=== PATIENT | female | born 1940 | race Caucasian/White ===

== ENCOUNTER 2019-01-14 04:37 | Emergency (ER) | payer MEDICARE, BC ==
[2019-01-14] MEDS ORDERED: Dexamethasone 4 MG TAB ONE (05:21)
[2019-01-14] MEDS ORDERED: Ondansetron ODT 4 MG TAB ONE (06:01)
--- NOTE | 2019-01-14 07:34 | RAD ---
EXAM: Chest 2 views: HISTORY: Shortness of breath COMPARISON: 05/31/2017 FINDINGS: There is a normal-sized cardiomediastinal silhouette. There is no evidence of consolidation, mass, or pleural effusion. A small hiatal hernia is present. The bones are unremarkable. IMPRESSION: No evidence of acute cardiopulmonary disease
== END 2019-01-14 06:04 | disposition home or self-care (01) ==
LOC: ERS 04:37
DX: J44.1 Chronic obstructive pulmonary disease with (acute) exacerbation (principal); D50.9 Iron deficiency anemia, unspecified; I10 Essential (primary) hypertension; Z87.891 Personal history of nicotine dependence; Z79.51 Long term (current) use of inhaled steroids
CPT/HCPCS: 71046; 94640; J7620; J8540; Q0162

== ENCOUNTER 2019-02-11 12:32 | Inpatient (IN) | payer MEDICARE, BC ==
[2019-02-11] MEDS ORDERED: Acetaminophen 325 MG TAB PO PRN (15:45)
[2019-02-11] MEDS ORDERED: Ondansetron PF 4 MG/2 ML Vial IVP PRN (15:45)
[2019-02-11] MEDS ORDERED: Guaifenesin DM 100-10/5 ML UDCUP PO PRN (15:45)
--- NOTE | 2019-02-11 16:17 | HP ---
REASON FOR ADMISSION: Severe anemia, likely acute blood loss anemia, COPD exacerbation. HISTORY OF PRESENTING ILLNESS: The patient gives history of developing shortness of breath early this morning. She went to [place] [facility] for the same. On initial workup, she was found to have had hemoglobin of 6 g. She does not complain of any chest pain, palpitation, fever. She has cough with usual expectoration of clear sputum. She has known history of COPD and is on home oxygen at bedtime along with nebulizers and Advair inhaler. No complaints of black stools. No abdominal pain, nausea, or vomiting. She states she takes at least 2 to 3 Tylenol and one tablet of Mobic for chronic arthritis pain. No ignacia bleeding per rectum or hemoptysis. No complaints of chest pain or palpitations. No fever. PAST MEDICAL AND SURGICAL HISTORY: History of hypertension, dyslipidemia, hypothyroidism, COPD, osteoarthritis. No prior surgical history. Has had prior EGD and colonoscopy. CURRENT MEDICATIONS: Takes; 1. Albuterol inhaler q.4 hours p.r.n. 2. Advair Diskus inhaler 250/50 mcg two puffs daily. 3. Mobic 7.5 mg daily. 4. Tylenol p.r.n. 5. Synthroid 75 mcg p.o. daily. 6. Cozaar 50 mg p.o. daily. 7. Norvasc 5 mg p.o. daily. ALLERGIES: TO LIPITOR. PERSONAL HISTORY: Quit smoking 30 years ago, prior to which I smoked 1 pack a day for nearly 30 years. Does not abuse alcohol or drugs. Lives with her of 64 years. FAMILY HISTORY: Mother in her 80s from natural causes. Father of natural causes as well at the age of 75. CODE STATUS: Full. Power of trust and estates attorney is her , Mr. Cristobal Smith. She ambulates per herself. REVIEW OF SYSTEMS: CONSTITUTIONAL: Negative for weight loss or gain, ability to conduct usual activities. SKIN: Negative for rash, itching. EYES: Negative for double vision, pain. ENT/MOUTH: Negative for nose bleeding, neck stiffness, pain, tenderness. CARDIOVASCULAR: Negative for palpitations, dyspnea on exertion, orthopnea. RESPIRATORY: Negative for shortness of breath, wheezing, cough, hemoptysis, fever or night sweats. GASTROINTESTINAL: Negative for poor appetite, abdominal pain, heartburn, nausea , vomiting, constipation, or diarrhea. GENITOURINARY: Negative for urgency, frequency, dysuria, nocturia. MUSCULOSKELETAL: Negative for pain, swelling. NEUROLOGIC/PSYCHIATRIC: Negative for anxiety, depression. ALLERGY/IMMUNOLOGIC: Negative for skin rash, bleeding tendency. PHYSICAL EXAMINATION: GENERAL: The patient is an 78-year-old female, who is currently not in any acute distress. VITAL SIGNS: Blood pressure 154/80, pulse 90 per minute, respiratory rate 18 per minute, temperature 98.1 degrees Fahrenheit, saturating 98% on room air. NECK: Supple. No elevated JVD. HEENT: Eyes; extraocular muscles intact. Pupils reacting to light. Oral cavity, mucous membranes are dry. No exudates or congestion. CARDIOVASCULAR: S1 and S2 heard. Regular rhythm. RESPIRATORY: Air entry 1+ bilateral. Scattered wheezes plus bilateral. ABDOMEN: Soft. Bowel sounds heard. No tenderness, rigidity, or guarding. EXTREMITIES: No peripheral edema or calf tenderness. Peripheral pulses are 1+ bilateral. No ischemic ulcerations or gangrene. CENTRAL NERVOUS SYSTEM: No gross focal deficits noted. The patient is alert, awake, oriented well. PSYCHIATRIC: The patient's mood is euthymic. No hallucinations or delusions. LABORATORY DATA: H and H is 6 and 20, platelet count is 442, MCV 67, white count of 11. Sodium 143, serum bicarb 26, BUN 11, creatinine 0.7, serum glucose 108. BNP is 144. Liver enzymes are within normal limits. Alkaline phosphatase is 81. Troponin I 0.01. Chest x-ray done shows mild cardiomegaly, otherwise no acute infiltrate. CLINICAL IMPRESSION AND PLAN: The patient will be admitted to medical floor for severe anemia with hemoglobin of 6 g. Normal BUN, still likely acute GI bleed. She will be on Protonix 40 mg IV q.12 hourly. We will obtain stool guaiac test. She also has acute on chronic obstructive pulmonary disease exacerbation. We will hold off on steroids and we will place her on empiric Levaquin, DuoNeb for now. She has received 1 unit of packed cell in [facility] and we will hold off on further transfusion with serial H and H checks every 6 hours. If her hemoglobin is less than 7 g, she will be transfused. I have spoken to Dr. Grant, her gastroenterologists will be evaluating her this evening. We will keep her on clear liquid diet for now. Mrs. Smith will continue her home dose of levothyroxine and Norvasc as before. We will obtain echo with 2D Doppler and LDH levels. Job ID: [id number] MTDD
[2019-02-11 16:27] LABS: Hemoglobin 8.1 g/dL (12.0-16.0)
[2019-02-11 17:24] VITALS: BMI 28.0
[2019-02-11] MEDS: Pantoprazole 40 MG VIAL IVP SCH (20:21)
[2019-02-11] MEDS ORDERED: GoLYTELY 4,000 ml Bottle PO SCH (22:00)
[2019-02-11 22:29] LABS: Hemoglobin 8.7 g/dL (12.0-16.0)
[2019-02-12] MEDS: Levothyroxine Sodium 75 MCG TAB PO SCH (02:57)
--- NOTE | 2019-02-12 05:30 | CON ---
DATE OF CONSULTATION: 02/11/2019 REASON FOR CONSULTATION: Anemia. HISTORY OF PRESENT ILLNESS: Charlee Smith is a very pleasant 78-year-old female went to the emergency rehab because of dyspnea. The patient will feel dyspneic off and on. There is no chest pain. No palpitation. She is known to have COPD, and she is on bronchodilators. The patient was seen in the [place] ER and was found to have anemia. The CBC showed hemoglobin of 6.4. The MCV is low at 6 to 7. Although, she has anemia, she has no history of chronic anemia. She denies any extreme fatigue, tiredness, or lack of energy. The patient has no history of GI bleeding. Her bowel movements are regular. No hematochezia or any melena. Denies history of any bleeding from the gums, nose bleed, or hematuria. The patient has no prior history of anemia. She came to the ER in 10/2018, sounds like head pain. At that time, she has normal CBC. She has a BM once a day. She had not seen any dark stool or any blood in the stool. The patient has no relevant history. The patient had seen me I believe in 2012 for which she came for a foreign body impaction. At that time, she had an EGD and has no pathology until then. In 09/2013, she had an EGD which revealed distal esophageal rings, non-obstructing, and esophagitis. The colonoscopy at that time showed scattered diverticular disease. No relevant history. ALLERGIES: NONE. SOCIAL HISTORY: The patient is . She quit smoking more than 40 years ago. Does not drink any alcohol. MEDICAL ILLNESSES: 1. Hypertension. 2. Hypothyroidism. 3. COPD. 4. Diverticular disease from previous colonoscopy in 2013. FAMILY HISTORY: Mother did have some cancer, place is unknown. No relevant family history. MEDICATION LIST: Reviewed. She is on amlodipine, albuterol, levofloxacin, levothyroxine, and also pantoprazole. PAST SURGICAL HISTORY: None. 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 No fevers. No night sweats. Exercise tolerance is very good. HEENT: No chronic headache. No syncope. No dizziness. ENT: Ears, no ear pain. No discharge. Eyes, no diplopia, no impaired vision. Throat, no sore throat. No dysphagia. NECK: No stiffness or pain. CARDIOVASCULAR: No chest pain. No palpitation. No dyspnea, orthopnea, or PND. RESPIRATORY: She has dyspnea off and on and coughing. She has noted COPD. GI: No abdominal pain. No nausea or vomiting. She gets dysphagia off and on for solid foods. : No hematuria or dysuria. MUSCULOSKELETAL: Not known. ENDOCRINE: Not known. NEUROLOGICAL: Not known. PHYSICAL EXAMINATION: GENERAL: She is a very pleasant female, appears comfortable. VITAL SIGNS: Stable. Afebrile. Pulse 96, blood pressure is 151/53. HEENT: Conjunctivae clear. NECK: Supple. No adenitis or thyromegaly noted. CARDIOVASCULAR SYSTEM: First and second heart sounds. LUNGS: Clear to auscultation. ABDOMEN: Soft. Abdomen is nondistended. Abdomen is nontender. No organomegaly or masses. Bowel sounds normal. EXTREMITIES: Reveal no edema. LABORATORY DATA: From this morning, WBC 11,500, hemoglobin 6.2, hematocrit 29.4, MCV 67.1, platelet count is 442,000, polymorphs 66, lymphocytes 18, monocytes 4, and retic count 1.9. Chemistry: Glucose 108, BUN is 11. LFTs normal. LDH is normal at 198. BNP 144.6. CLINICAL IMPRESSION: 1. An 78-year-old female with anemia which is microcytic. The patient has no history of gastrointestinal bleeding. No history of hematochezia or any melena. No history of any nose bleeding. 2. Dysphagia, intermittent. 3. Hypertension. 4. Hypothyroidism. 5. Chronic obstructive pulmonary disease. RECOMMENDATIONS: 1. Transfuse. 2. Follow up H and H. 3. EGD and colonoscopy tomorrow. Job ID: [id number]
[2019-02-12] MEDS ORDERED: GoLYTELY 4,000 ml Bottle PO SCH (06:00)
[2019-02-12 07:02] LABS: Hemoglobin 9.9 g/dL (12.0-16.0)
[2019-02-12 07:16] LABS: ALT (SGPT) 8 U/L (8-55); AST (SGOT) 11 U/L (5-34); Albumin 4.2 g/dL (3.4-4.8); Alkaline Phosphatase 93 U/L (40-150); Anion Gap 12 mmol/L (10-20); BUN (Urea Nitrogen) 7 mg/dL (9.8-20.1); Bilirubin, Total 0.7 mg/dL (0.2-1.2); Calc. Creatinine Clearance 57 mL/min (70-130); Calcium 9.9 mg/dL (7.8-10.44); Carbon Dioxide 27 mmol/L (23-31); Chloride 104 mmol/L (98-107); Estimated GFR-MDRD 68; Globulin 2.9 g/dL (2.4-3.5); Glucose 139 mg/dL (83-110); Potassium 3.6 mmol/L (3.5-5.1); Protein, Total 7.1 g/dL (6.0-8.3); Sodium 139 mmol/L (136-145)
[2019-02-12] MEDS: Amlodipine 5 MG TAB PO SCH (08:28)
[2019-02-12] MEDS: Pantoprazole 40 MG VIAL IVP SCH ×2 (08:34→21:18)
--- NOTE | 2019-02-12 13:14 | PDOC.PN ---
- Subjective Encounter Start Date: 02/12/19 Encounter Start Time: 10:40 Subjective: no abd pain or bleed -: she finished bowel prep for colonoscopy -: sob is better - Objective Resuscitation Status - Order Detail: 02/11/19 15:40 Resuscitation Status Routine Resuscitation Status: FULL: Full Resuscitation Discussed with: POA: Mr.Jack Smith MAR Reviewed: Yes Vital Signs & Weight: Vital Signs (12 hours) Temp Pulse Resp BP Pulse Ox 02/12/19 11:14 97.7 F 99 18 164/84 H 92 L 02/12/19 07:22 97.5 F L 97 22 H 127/63 97 02/12/19 07:04 88 16 98 02/12/19 05:44 98.4 F 91 18 147/68 H 94 L Weight Weight 143 lb 4.8 oz I&O: 02/11/19 02/12/19 02/13/19 06:59 06:59 06:59 Intake Total 110 Balance 110 Result Diagrams: 02/12/19 06:28 02/12/19 06:28 Phys Exam - Physical Examination HEENT: PERRLA, moist MMs Neck: no JVD, supple Respiratory: no wheezing, no rales rhonchi+ Cardiovascular: RRR, no significant murmur Gastrointestinal: soft, non-tender, positive bowel sounds Musculoskeletal: no edema, pulses present Neurological: non-focal, moves all 4 limbs Psychiatric: normal affect, A&O x 3 Dx/Plan (1) GI bleed Code(s): K92.2 - GASTROINTESTINAL HEMORRHAGE, UNSPECIFIED Status: Suspected Qualifiers: GI bleed type/associated pathology: unspecified gastrointestinal hemorrhage type Qualified Code(s): K92.2 - Gastrointestinal hemorrhage, unspecified (2) Severe anemia Code(s): D64.9 - ANEMIA, UNSPECIFIED Status: Acute (3) COPD exacerbation Code(s): J44.1 - CHRONIC OBSTRUCTIVE PULMONARY DISEASE W (ACUTE) EXACERBATION Status: Acute (4) HTN (hypertension) Code(s): I10 - ESSENTIAL (PRIMARY) HYPERTENSION Status: Chronic Qualifiers: Hypertension type: essential hypertension Qualified Code(s): I10 - Essential (primary) hypertension (5) Hypothyroidism Code(s): E03.9 - HYPOTHYROIDISM, UNSPECIFIED Status: Chronic Qualifiers: Hypothyroidism type: acquired Qualified Code(s): E03.9 - Hypothyroidism, unspecified - Plan is on protonix q12h -: h/h stable around 07/29, recieved 2 u prbc -: for egd/colonoscopy today -: continue nebs, levaquin, norvasc and synthroid -: to mobilize as tolerated, dc plan in am if stable * . Review of Systems - Medications/Allergies Allergies/Adverse Reactions: Allergies Allergy/AdvReac Type Severity Reaction Status Date / Time No Known Allergies Allergy Verified 02/11/19 17:31 Medications: Current Medications Acetaminophen (Tylenol) 650 mg PO Q4H PRN PRN Reason: Headache/Fever/Mild Pain (1-3) Albuterol/Ipratropium (Duoneb) 3 ml NEB Q6HK-LT [facility] Last Admin: 02/12/19 07:04 Dose: 3 ml Amlodipine Besylate (Norvasc) 5 mg PO DAILY [facility] Last Admin: 02/12/19 08:28 Dose: 5 mg Guaifenesin/Dextromethorphan (Robitussin Dm) 15 ml PO Q4H PRN PRN Reason: Cough Levofloxacin 500 mg/ Device 100 mls @ 100 mls/hr IVPB Q24HR [facility] Last Admin: 02/11/19 17:42 Dose: 100 mls Levothyroxine Sodium (Synthroid) 75 mcg PO 0600 [facility] Last Admin: 02/12/19 02:57 Dose: Not Given Ondansetron HCl (Zofran) 4 mg IVP Q6H PRN PRN Reason: Nausea/Vomiting Pantoprazole Sodium (Protonix) 40 mg IVP Q12HR [facility] Last Admin: 02/12/19 08:34 Dose: 40 mg
[2019-02-12] MEDS ORDERED: Sodium Chloride For Inhalation 0.9% 3 ML NEB ONE (19:02)
--- NOTE | 2019-02-13 01:31 | OP ---
DATE OF PROCEDURE: 02/12/2019 PROCEDURE PERFORMED: Esophagogastroduodenoscopy with biopsy. PREOPERATIVE DIAGNOSES: Anemia and history of dysphagia. POSTOPERATIVE DIAGNOSES: 1. 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 2. Hiatal hernia. 3. Gastric polyps. 4. Polyp in the duodenal bulb with 3 ulcerations. Descending duodenum, no pathology. DESCRIPTION OF PROCEDURE: The patient was placed on her left lateral position and was given sedation by Anesthesia Department. A Pentax video gastroscope under direct vision was passed down the oropharynx to the GE junction. The esophageal mucosa appeared normal. The GE junction showed a nonobstructing esophageal ring. However, with advancement of the scope with therapeutic EGD scope, there was a tear at the ring. She had a hiatal hernia. There were multiple small gastric polyps proximal. The gastric body, gastric antrum, incisura, angularis, no pathology seen. The duodenal bulb especially over the postbulbar area showed 3 ulcerations polyp around the postbulbar area . The descending duodenum, no pathology. The scope was withdrawn back to the stomach and biopsies of the gastric antrum and gastric body. The stomach decompressed and the scope removed. RECOMMENDATION: 1. Iron supplement. 2. Pantoprazole 40 once a day. Job ID: [id number]
[2019-02-13] MEDS: Levothyroxine Sodium 75 MCG TAB PO SCH (05:31)
[2019-02-13] MEDS: Amlodipine 5 MG TAB PO SCH (07:56)
[2019-02-13] MEDS: Pantoprazole 40 MG VIAL IVP SCH (07:57)
[2019-02-13 07:58] LABS: #Basophils 0.1 thou/uL (0.0-0.2); #Eosinphils 0.6 thou/uL (0.0-0.7); #Lymphocytes 1.8 thou/uL (1.20-3.40); #Monocytes 1.4 thou/uL (0.11-0.59); %Basophils 0.5 % (0.0-1.0); %Eosinophils 5.2 % (0.0-10.0); %Lymphocytes 15.1 % (21.0-51.0); %Monocytes 11.6 % (0.0-10.0); %Neutrophils 67.5 % (42.0-75.0); Hemoglobin 9.2 g/dL (12.0-16.0); Mean Corpuscular HGB CONC 31.2 g/dL (32.0-36.0); Mean Corpuscular Hemoglobin 22.9 pg (27.0-31.0); Mean Corpuscular Volume 73.4 fL (78.0-98.0); Mean Platelet Volume 9.2 fL (7.4-10.4); Platelet Count 429 thou/uL (130-400); RBC Distribution Width 20.9 % (11.5-14.5); Red Blood Cell (RBC) Count 4.03 mill/uL (4.20-5.40); White Blood Cell (WBC) Count 11.8 thou/uL (4.8-10.8)
[2019-02-13 08:03] LABS: Anion Gap 13 mmol/L (10-20); BUN (Urea Nitrogen) 9 mg/dL (9.8-20.1); Calc. Creatinine Clearance 61 mL/min (70-130); Calcium 9.4 mg/dL (7.8-10.44); Carbon Dioxide 27 mmol/L (23-31); Chloride 104 mmol/L (98-107); Estimated GFR-MDRD 74; Glucose 103 mg/dL (83-110); Potassium 3.6 mmol/L (3.5-5.1); Sodium 140 mmol/L (136-145)
[2019-02-13 08:46] LABS: Hypochromia SLIGHT = 6-15 cells (100X) (0-5/hpf); MDiff Complete? YES; Microcytosis SLIGHT = 6-15 cells (100X) (0-5/hpf); Platelet Morphology Comment Appears Increased; Polychromasia SLIGHT = 2-3 cells (100X) (0-2/hpf)
[2019-02-13 12:15] VITALS: BP 136/69; TEMP 97.3
--- NOTE | 2019-02-13 12:52 | OP ---
DATE OF PROCEDURE: 02/12/2019 PROCEDURE PERFORMED: Attempted colonoscopy - flexible sigmoidoscopy. PREOPERATIVE DIAGNOSIS: Severe anemia, anemia of microcytic. POSTOPERATIVE DIAGNOSES: 1. Large hemorrhoids. 2. Sigmoid diverticular disease. 3. Retained stool in the colonic lumen. colon, although I could not really get past the area of fecal material. DESCRIPTION OF PROCEDURE: The patient was placed on her left lateral position and was given sedation by Anesthesia Department. A rectal exam was done before the scope was advanced into the rectum. The patient was found to have large hemorrhoids. A Pentax video colonoscope was introduced into the rectum and advanced to a distance of about 45 cm from the anal margin. The patient's mucosa appeared normal. The patient had large amount of solid stool, which is blocking the colonic lumen. I tried to irrigate and wash out the area, but the stools are solid and I could really dislodge them. After 10 minutes of trying the procedure. RECOMMENDATIONS: Reprep the patient tomorrow and bring the patient back for colonoscopy tomorrow afternoon. Job ID: [id number]
--- NOTE | 2019-02-13 13:23 | PRG ---
DATE OF SERVICE: 02/13/2019 SUBJECTIVE: Ms. Charlee Smith is a very pleasant 78-year-old female with COPD, who presented to the ER with anemia. The patient had no history of blood loss. The patient had EGD yesterday, which revealed a gastric polyp, a polyp in the duodenum, and also 3 small ulcers. No active bleeding. The attempted colonoscopy was negative. A colonoscopy was attempted, but not successful because of retained stool. The patient opted to go and come back as outpatient. Medically, she is actually stable. She is tolerating diet. She has no complaints. PHYSICAL EXAMINATION: GENERAL: Appears comfortable. VITAL SIGNS: Stable. Pulse is 99, blood pressure is 136/69. Afebrile. CARDIOVASCULAR: Within normal limits. LUNGS: Within normal limits. ABDOMEN: Soft. No organomegaly. No tenderness. LABORATORY DATA: From today, WBC 11,800, hemoglobin 9.2, hematocrit 29.6, MCV 73.4. CLINICAL IMPRESSION: Anemia with no history of any gastrointestinal bleeding. She has been transfused. She is clinically stable. The patient does not want to stay for colonoscopy. She wants to go and come back as outpatient. The patient can be discharged home on iron supplement and ordered pantoprazole 40 once a day. She will come back to see me in the office in 2 weeks. Job ID: [id number]
--- NOTE | 2019-02-13 13:33 | PDOC.PN ---
- Subjective Encounter Start Date: 02/13/19 Encounter Start Time: 09:45 Subjective: no abd pain or nausea or bleeding - Objective Resuscitation Status - Order Detail: 02/11/19 15:40 Resuscitation Status Routine Resuscitation Status: FULL: Full Resuscitation Discussed with: POA: Mr.Jack Smith MAR Reviewed: Yes Vital Signs & Weight: Vital Signs (12 hours) Temp Pulse Resp BP BP Pulse Ox 02/13/19 12:14 97.3 F L 99 20 136/69 94 L 02/13/19 08:20 98.6 F 94 18 136/68 94 L 02/13/19 08:01 92 L 02/13/19 07:56 96 20 129/65 92 L 02/13/19 04:00 98.5 F 92 20 129/65 99 Weight Weight 143 lb 4.8 oz I&O: 02/12/19 02/13/19 02/14/19 06:59 06:59 06:59 Intake Total 110 500 Balance 110 500 Result Diagrams: 02/13/19 07:35 02/13/19 07:35 Phys Exam - Physical Examination HEENT: PERRLA, moist MMs Neck: no JVD, supple Respiratory: no wheezing, no rales Cardiovascular: RRR, no significant murmur Gastrointestinal: soft, non-tender, positive bowel sounds Musculoskeletal: no edema, pulses present Neurological: non-focal, moves all 4 limbs Psychiatric: normal affect, A&O x 3 Dx/Plan (1) GI bleed Code(s): K92.2 - GASTROINTESTINAL HEMORRHAGE, UNSPECIFIED Status: Acute Qualifiers: GI bleed type/associated pathology: duodenal ulcer Qualified Code(s): K26.4 - Chronic or unspecified duodenal ulcer with hemorrhage (2) Severe anemia Code(s): D64.9 - ANEMIA, UNSPECIFIED Status: Acute Comment: ac blood loss anemia (3) COPD exacerbation Code(s): J44.1 - CHRONIC OBSTRUCTIVE PULMONARY DISEASE W (ACUTE) EXACERBATION Status: Resolved (4) HTN (hypertension) Code(s): I10 - ESSENTIAL (PRIMARY) HYPERTENSION Status: Chronic Qualifiers: Hypertension type: essential hypertension Qualified Code(s): I10 - Essential (primary) hypertension (5) Hypothyroidism Code(s): E03.9 - HYPOTHYROIDISM, UNSPECIFIED Status: Chronic Qualifiers: Hypothyroidism type: acquired Qualified Code(s): E03.9 - Hypothyroidism, unspecified - Plan h/h stable -: d/w , she will have outpt colonoscopy with prep -: protonix, feso4 -: dc pt home * . Review of Systems - Medications/Allergies Allergies/Adverse Reactions: Allergies Allergy/AdvReac Type Severity Reaction Status Date / Time No Known Allergies Allergy Verified 02/11/19 17:31 Medications: Current Medications Acetaminophen (Tylenol) 650 mg PO Q4H PRN PRN Reason: Headache/Fever/Mild Pain (1-3) Last Admin: 02/13/19 00:25 Dose: 650 mg Albuterol/Ipratropium (Duoneb) 3 ml NEB [id number] [facility] Last Admin: 02/13/19 07:56 Dose: 3 ml Amlodipine Besylate (Norvasc) 5 mg PO DAILY [facility] Last Admin: 02/13/19 07:56 Dose: 5 mg Guaifenesin/Dextromethorphan (Robitussin Dm) 15 ml PO Q4H PRN PRN Reason: Cough Levofloxacin 500 mg/ Device 100 mls @ 100 mls/hr IVPB Q24HR [facility] Last Admin: 02/12/19 16:22 Dose: 100 mls Levothyroxine Sodium (Synthroid) 75 mcg PO 0600 [facility] Last Admin: 02/13/19 05:31 Dose: 75 mcg Ondansetron HCl (Zofran) 4 mg IVP Q6H PRN PRN Reason: Nausea/Vomiting Pantoprazole Sodium (Protonix) 40 mg PO Q12HR [facility]
--- NOTE | 2019-02-14 11:16 | DIS ---
DATE OF ADMISSION: 02/11/2019 DATE OF DISCHARGE: 02/13/2019 DISCHARGE DISPOSITION: To home. PRIMARY DISCHARGE DIAGNOSES: Acute blood loss anemia, likely gastrointestinal bleed, and chronic obstructive pulmonary disease exacerbation. SECONDARY DISCHARGE DIAGNOSES: Hypertension and hypothyroidism. PROCEDURES DONE DURING HOSPITALIZATION: Attempted colonoscopy with flexible sigmoidoscopy done showed large hemorrhoids, sigmoid diverticular disease, retained stool in the colon lumen. EGD done showed ring-like esophageal stricture at the gastroesophageal junction, broken up with passes of the scope, gastric polyps, polyp in the duodenal bulb with three ulcerations. H and H on admission were 5.9 and 20. Discharge H and H are 9 and 29, MCV is 73 , and platelet count is 429. BUN 9, creatinine 0.7, and albumin is 4.2. DISCHARGE MEDICATIONS: 1. Advair Diskus inhaler 500/50 mcg twice daily. 2. Levothyroxine 75 mcg p.o. daily. 3. Losartan 50 mg p.o. daily. 4. Ventolin inhaler q.6 hourly p.r.n. 5. Ferrous sulfate 325 mg p.o. daily. 6. DuoNeb q.6 hourly. 7. Multivitamin one tablet once daily. 8. Protonix 40 mg p.o. daily. ALLERGIES: NO KNOWN DRUG ALLERGIES. INPATIENT CONSULT: Dr. Grant for Gastroenterology. DISCHARGE PLAN: The patient to follow up with Dr. Grant in 2 weeks with full bowel prep for colonoscopy and primary care physician in 1 week. BRIEF COURSE DURING HOSPITALIZATION: The patient initially got admitted on the with complaints of shortness of breath. Initially. She was found to be severely anemic with hemoglobin around 5 g. No obvious melena or hemoptysis was reported by the patient. She was given 2 units of packed cell transfusion. Serial H and H were done, which has remained stable. She has had consultation with Dr. Grant. Upper and lower endoscopies were planned. Upper endoscopy done revealed three duodenal ulcers with a duodenal polyp and gastric polyps. Colonoscopy was incomplete due to inadequate prep. The patient needs to follow up with Dr. Grant in 2 weeks for a full colonoscopy. She also had COPD exacerbation, which was treated with DuoNebs and no steroids were given due to suspected GI bleed. She has responded well to the nebulizations. She has remained hemodynamically stable. The patient is ambulating and tolerating solid food prior to discharge. Please see a [id number] documentation for the day of discharge on [employer]. Job ID: [id number] MTDD
--- NOTE | 2019-02-14 14:36 | EKG ---
Test Reason : Blood Pressure : / mmHG Vent. Rate : 094 BPM Atrial Rate : 094 BPM P-R Int : 144 ms QRS Dur : 088 ms QT Int : 360 ms P-R-T Axes : 000 -10 123 degrees QTc Int : 450 ms Sinus rhythm with occasional Premature ventricular complexes Low voltage QRS Nonspecific T wave abnormality Abnormal ECG Confirmed by GEE FERRO D.O. ([id number]), supervising film or videotape editor VASU CARPIO ([id number]) on 02/14/2019 2:36:10 PM Referred By: Confirmed By:GEE FERRO D.O.
== END 2019-02-13 13:58 | disposition home or self-care (01) | DRG 378 ==
LOC: ERS 12:32 → T4-B 14:06
PROVIDERS: ADMIT Internal Medicine; ATTEND Internal Medicine
PROC: 30233N1 Transfusion of Nonautologous Red Blood Cells into Peripheral Vein, Percutaneous Approach (ICD-10-PCS; 2019-02-11)
PROC: 0DB68ZX Excision of Stomach, Via Natural or Artificial Opening Endoscopic, Diagnostic (ICD-10-PCS; principal; 2019-02-12)
PROC: 0DJD8ZZ Inspection of Lower Intestinal Tract, Via Natural or Artificial Opening Endoscopic (ICD-10-PCS; 2019-02-12)
DX: K26.4 Chronic or unspecified duodenal ulcer with hemorrhage (principal); J44.1 Chronic obstructive pulmonary disease with (acute) exacerbation; I10 Essential (primary) hypertension; E78.5 Hyperlipidemia, unspecified; E03.9 Hypothyroidism, unspecified; M19.90 Unspecified osteoarthritis, unspecified site; R13.10 Dysphagia, unspecified; K22.2 Esophageal obstruction; K44.9 Diaphragmatic hernia without obstruction or gangrene; K31.7 Polyp of stomach and duodenum; K64.9 Unspecified hemorrhoids; D50.9 Iron deficiency anemia, unspecified; K57.30 Diverticulosis of large intestine without perforation or abscess without bleeding; Z88.8 Allergy status to other drugs, medicaments and biological substances; Z87.891 Personal history of nicotine dependence
CPT/HCPCS: 36415; 80048; 80053; 83615; 85014; 85018; 85025; 86850; 86900; 86901; 93005; 93306; 94640; 94760; C9113; J1956; J7620; P9016

== ENCOUNTER 2019-03-24 09:09 | Day surgery (SDC) | payer MEDICARE, BC ==
[2019-03-23 10:45] VITALS: BMI 28.3
--- NOTE | 2019-03-23 22:16 | HP ---
HISTORY OF PRESENT ILLNESS: This is an 78-year-old , hospitalized earlier this year because of severe, symptomatic microcytic anemia. She has no history of any GI bleeding. She underwent an EGD and was found to have ulcer disease. However, no active bleeding seen. The anemia is microcytic. Because of anemia is microcytic, she also had a stool guaiac done. The stool came back positive for occult blood. The patient will undergo colonoscopy because of the above reason. ALLERGIES: NONE. MEDICAL ILLNESS: 1. Hypertension. 2. Hypothyroidism. 3. COPD. 4. Peptic ulcer. 5. Anemia. PHYSICAL EXAMINATION: VITAL SIGNS: Pulse is 70 and blood pressure 130/80. HEENT: Conjunctivae clear. NECK: Supple. No adenitis or thyromegaly noted. CARDIOVASCULAR SYSTEM: First and second sounds normal. LUNGS: Clear to auscultation. ABDOMEN: Soft. No organomegaly. No tenderness. No masses. ADMITTING DIAGNOSES: 1. Anemia, iron deficiency. 2. Occult gastrointestinal bleeding. PLAN: Colonoscopy. Job ID: [id number]
--- NOTE | 2019-03-24 12:31 | OP ---
DATE OF PROCEDURE: 03/24/2019 OPERATIVE PROCEDURE: Colonoscopy. PREOPERATIVE DIAGNOSES: An 78-year-old female with anemia, occult gastrointestinal bleeding. The patient undergoing colonoscopy. POSTOPERATIVE DIAGNOSES: 1. Very tortuous, redundant colon. 2. Diffuse colonic diverticular disease all the way to the cecum. 3. Large hemorrhoids. DESCRIPTION OF PROCEDURE: The patient was placed on the left lateral position and was given sedation by Anesthesia Department. A rectal exam was done before the scope was advanced into the rectum. The patient found to have large hemorrhoids. No other lesions felt. A Pentax videocolonoscope was introduced into the rectum and advanced all the way to the cecum. The prep was excellent. The mucosa appears normal throughout the colon with normal vascular pattern. The patient had a very redundant, tortuous colon. The scope was difficult to advance in the sigmoid colon area. Abdominal compression was used to advance the scope all the way into the cecum. The patient has diffuse colonic diverticulosis from the sigmoid colon all the way into the cecum. Withdrawal of scope in the cecum, ascending colon, hepatic flexure, transverse colon, splenic flexure, descending colon, and sigmoid colon, no other lesion seen except for the scattered diverticula. Retroflexion of scope in the rectum showed hemorrhoids. DISCHARGE PLANNING: This is an 78-year-old female, came for colonoscopy because of anemia and occult GI bleeding. Colonoscopy showed diffuse colonic diverticular disease. The exam was somewhat difficult because of the very tortuous, somewhat redundant colon. DISCHARGE RECOMMENDATION: 1. Iron supplement. 2. Follow H and H. 3. To come back to clinic in 2 weeks. Job ID: [id number]
[2019-03-24] MEDS ORDERED: PROPOFOL 200 MG/20 ML VIAL ONE (12:32)
[2019-03-24] MEDS ORDERED: Lidocaine 1% PF 5 ML VIAL ONE (12:32)
== END 2019-03-24 12:13 | disposition home or self-care (01) ==
LOC: SDC 09:09
PROVIDERS: ATTEND Internal Medicine Gastroenterology
PROC: 0DJD8ZZ Inspection of Lower Intestinal Tract, Via Natural or Artificial Opening Endoscopic (ICD-10-PCS; principal; 2019-03-24)
DX: D50.0 Iron deficiency anemia secondary to blood loss (chronic) (principal); K57.31 Diverticulosis of large intestine without perforation or abscess with bleeding; K64.9 Unspecified hemorrhoids; K27.9 Peptic ulcer, site unspecified, unspecified as acute or chronic, without hemorrhage or perforation; I10 Essential (primary) hypertension; E03.9 Hypothyroidism, unspecified; J44.9 Chronic obstructive pulmonary disease, unspecified; Z79.51 Long term (current) use of inhaled steroids; Z79.899 Other long term (current) drug therapy
CPT/HCPCS: J2001; J2704

== ENCOUNTER 2019-05-17 12:14 | Inpatient (IN) | payer MEDICARE, BC ==
[2019-05-17] MEDS ORDERED: Magnesium 2 GM/50 ML BAG (IN WATER) ONE (13:15)
[2019-05-17 13:25] LABS: Troponin I Less than 0.010 ng/mL (< 0.028)
[2019-05-17] MEDS ORDERED: cefTRIAXone\\ROCEPHIN 2 GM VIAL ONE (14:41)
[2019-05-17] MEDS ORDERED: Senokot S 8.6-50 MG TAB PO PRN (14:42)
[2019-05-17] MEDS ORDERED: Bisacodyl 10 MG SUPP PR PRN (14:42)
[2019-05-17] MEDS ORDERED: Acetaminophen 325 MG TAB PO PRN (14:42)
--- NOTE | 2019-05-17 15:24 | HP ---
REASON FOR ADMISSION: Acute COPD exacerbation. HISTORY OF PRESENTING ILLNESS: The patient gives history of shortness of breath , which started out from yesterday evening. This progressively got worse to the point that she was unable to take a nice deep breath and was rapidly breathing with shallow breaths. She has had no fever. No complaints of chest pain or palpitation. Has occasional expectoration of white phlegm. The patient uses home oxygen at bedtime. She also uses nebulizers 4 times a day and Advair Diskus inhaler twice daily. No complaints of black stools. PAST MEDICAL AND SURGICAL HISTORY: History of COPD, which is oxygen dependent at night; hypertension; osteoarthritis; recent acute blood loss anemia, resolved with hemoglobin coming up to 11 g now; dyslipidemia; hypothyroidism. The patient has had colonoscopy and endoscopies done. The patient had colonoscopy on 03/24/2019, which showed tortuous redundant colon. There is diffuse colonic diverticular disease all the way to the cecum. Large hemorrhoids were seen. Upper endoscopy done on 02/12/2019 showed ring-like esophageal stricture at the gastroesophageal junction, which was broken up with multiple passes of scope, duodenal bulb polyp with 3 ulcerations seen. Echo done on 02/12/2019 showed normal ejection fraction of 50 % to 55%. No other prior surgical history. CURRENT MEDICATIONS: The patient is on: 1. Combivent inhaler twice daily. 2. DuoNeb q.4 hourly p.r.n. 3. Flexeril p.r.n. 4. Synthroid 75 mcg daily. 5. Protonix 40 mg twice daily. 6. Multivitamin one tablet daily. 7. Ferrous sulfate 325 mg daily. 8. Cozaar 50 mg daily. PERSONAL HISTORY: Quit smoking more than 30 years ago. Does not abuse alcohol or drugs. Lives with her . The patient ambulates by herself. FAMILY HISTORY: Mother in her 80s from natural causes. Father of natural causes in his 80s. CODE STATUS: Full. Power of assistant city attorney is her , Mr. Cirstobal Smith. REVIEW OF SYSTEMS: CONSTITUTIONAL: Negative for weight loss or gain, ability to conduct usual activities. SKIN: Negative for rash, itching. EYES: Negative for double vision, pain. ENT/MOUTH: Negative for nose bleeding, neck stiffness, pain, tenderness. CARDIOVASCULAR: Negative for palpitations, dyspnea on exertion, orthopnea. RESPIRATORY: Negative for shortness of breath, wheezing, cough, hemoptysis, fever or night sweats. GASTROINTESTINAL: Negative for poor appetite, abdominal pain, heartburn, nausea , vomiting, constipation, or diarrhea. GENITOURINARY: Negative for urgency, frequency, dysuria, nocturia. MUSCULOSKELETAL: Negative for pain, swelling. NEUROLOGIC/PSYCHIATRIC: Negative for anxiety, depression. ALLERGY/IMMUNOLOGIC: Negative for skin rash, bleeding tendency. PHYSICAL EXAMINATION: GENERAL: The patient is an 78-year-old female, who is currently not in any acute distress. VITAL SIGNS: Blood pressure 140/80, pulse 110 per minute, respiratory rate 26 per minute, temperature 98.4 degrees Fahrenheit, saturating 97% on 2 L nasal cannula. NECK: Supple. No elevated JVD. HEENT: Eyes; extraocular muscles intact. Pupils are reacting to light. Oral cavity, mucous membranes are dry. No exudates or congestion. CARDIOVASCULAR SYSTEM: S1 and S2 heard. Tachycardic. No murmur. RESPIRATORY SYSTEM: Air entry 1+ bilateral. Scattered wheezes plus bilateral. ABDOMEN: Soft. Bowel sounds heard. No tenderness, rigidity, or guarding. EXTREMITIES: No peripheral edema or calf tenderness. VASCULAR SYSTEM: Peripheral pulses 1+ bilateral. No ischemic ulcerations or gangrene. CENTRAL NERVOUS SYSTEM: No gross focal deficits noted. The patient is alert, awake, and oriented well. PSYCHIATRIC SYSTEM: The patient's mood is euthymic. No hallucinations or delusions. LABORATORY DATA: Chest x-ray done shows no acute process. White count of 9, H and H of 11 and 38, platelet count 316, MCV 73, with 72% neutrophils. Electrolytes stable. BUN 7, creatinine 0.6, serum glucose 116. Troponin x2 negative. Liver enzymes within normal limit. BNP 34. Albumin is 3.9. CLINICAL IMPRESSION AND PLAN: The patient will be admitted to medical floor for acute on chronic obstructive pulmonary disease exacerbation. She will be on a DuoNeb and Solu-Medrol 40 mg q.6 hourly. Empiric Augmentin. We will continue her home dose of levothyroxine, losartan, multivitamin, Protonix, and ferrous sulfate as before. She will be with walking program to ambulate. Respiratory cultures if she can provide one. We will continue to closely monitor her on medical floor. Job ID: [id number] [facility]
[2019-05-17 15:54] VITALS: BMI 24.6
[2019-05-17] MEDS: Mometasone/Formoterol 120 PUFF INHALER INH SCH (18:11)
[2019-05-17] MEDS: methylPREDNISolone Sod Succ 40 MG VIAL IVP SCH ×2 (18:31→23:05)
[2019-05-17] MEDS: Amoxicillin/Potassium Clav 875 MG TAB PO SCH (20:35)
[2019-05-17] MEDS: Guaifenesin DM 100-10/5 ML UDCUP PO PRN (22:59)
[2019-05-18 04:56] LABS: #Lymphocytes 0.8 thou/uL (1.20-3.40); #Monocytes 0.1 thou/uL (0.11-0.59); #Neutrophils 3.8 thou/uL (1.40-6.50); %Eosinophils 0.2 % (0.0-10.0); %Lymphocytes 16.1 % (21.0-51.0); %Monocytes 2.1 % (0.0-10.0); %Neutrophils 81.5 % (42.0-75.0); Hemoglobin 11.2 g/dL (12.0-16.0); Mean Corpuscular HGB CONC 31.6 g/dL (32.0-36.0); Mean Corpuscular Hemoglobin 23.8 pg (27.0-31.0); Mean Corpuscular Volume 75.2 fL (78.0-98.0); Mean Platelet Volume 11.4 fL (7.4-10.4); Platelet Count 351 thou/uL (130-400); RBC Distribution Width 22.3 % (11.5-14.5); Red Blood Cell (RBC) Count 4.71 mill/uL (4.20-5.40); White Blood Cell (WBC) Count 4.7 thou/uL (4.8-10.8)
[2019-05-18] MEDS: Levothyroxine Sodium 75 MCG TAB PO SCH (05:20)
[2019-05-18] MEDS: methylPREDNISolone Sod Succ 40 MG VIAL IVP SCH ×2 (05:21→11:14)
[2019-05-18 05:22] LABS: Anion Gap 13 mmol/L (10-20); BUN (Urea Nitrogen) 14 mg/dL (9.8-20.1); Calc. Creatinine Clearance 58 mL/min (70-130); Calcium 9.5 mg/dL (7.8-10.44); Carbon Dioxide 28 mmol/L (23-31); Chloride 102 mmol/L (98-107); Estimated GFR-MDRD 81; Glucose 150 mg/dL (83-110); Potassium 4.4 mmol/L (3.5-5.1); Sodium 139 mmol/L (136-145)
[2019-05-18] MEDS: Mometasone/Formoterol 120 PUFF INHALER INH SCH ×2 (06:51→19:51)
[2019-05-18] MEDS: Guaifenesin DM 100-10/5 ML UDCUP PO PRN (08:48)
[2019-05-18] MEDS: Losartan 25 MG TAB PO SCH (08:49)
[2019-05-18] MEDS: Ferrous Sulfate 325 MG TAB PO SCH (08:49)
[2019-05-18] MEDS: Multivit, Therapeutic 1 TAB PO SCH (08:49)
[2019-05-18] MEDS: Amoxicillin/Potassium Clav 875 MG TAB PO SCH ×2 (08:50→20:34)
[2019-05-18] MEDS: Enoxaparin Sodium 40 MG/0.4 ML SYRINGE SC SCH (08:50)
--- NOTE | 2019-05-18 12:12 | PDOC.HOSPP ---
- Subjective Encounter Date: 05/18/19 Encounter Time: 09:35 Subjective: breathing better, is amb in room off nasal oxygen this am but spo2 around 86% (asymptomatic now) - Objective Vital Signs & Weight: Vital Signs (12 hours) Temp Pulse Resp BP BP Pulse Ox 05/18/19 11:13 98.1 F 113 H 18 126/61 92 L 05/18/19 08:00 98.4 F 93 18 114/68 99 05/18/19 06:50 91 14 97 05/18/19 05:23 97.7 F 103 H 20 128/64 94 L 05/18/19 01:30 96 14 98 Weight Weight 126 lb 4.8 oz Result Diagrams: 05/18/19 04:34 05/18/19 04:34 ROS - Medication Medications: Active Medications Generic Name Dose Route Start Last Admin Trade Name Freq PRN Reason Stop Dose Admin Albuterol/Ipratropium 3 ml 05/17/19 19:00 05/18/19 06:50 Duoneb NEB 3 ml [id number] AIYANA Administration Amoxicillin/Clavulanate Potassium 875 mg 05/17/19 21:00 05/18/19 08:50 Augmentin PO 875 mg BID AIYANA Administration Enoxaparin Sodium 40 mg 05/18/19 09:00 05/18/19 08:50 Lovenox SC 40 mg 09 AIYANA Administration Ferrous Sulfate 325 mg 05/18/19 09:00 05/18/19 08:49 Feosol PO 325 mg DAILY AIYANA Administration Guaifenesin/Dextromethorphan 15 ml 05/17/19 14:42 05/18/19 08:48 Robitussin Dm PO 15 ml Q4H PRN Administration Cough Levothyroxine Sodium 75 mcg 05/18/19 06:00 05/18/19 05:20 Synthroid PO 75 mcg 0600 AIYANA Administration Losartan Potassium 50 mg 05/18/19 09:00 05/18/19 08:49 Cozaar PO 50 mg DAILY AIYANA Administration Mometasone Furoate/Formoterol Fumar 2 puff 05/17/19 18:30 05/18/19 06:51 Dulera 200 Mcg/5 Mcg Inhaler INH 2 puff BID-RT AIYANA Administration Multivitamins 1 tab 05/18/19 09:00 05/18/19 08:49 Theragran PO 1 tab DAILY AIYANA Administration Pantoprazole Sodium 40 mg 05/17/19 21:00 05/18/19 08:49 Protonix PO 40 mg BID AIYANA Administration - Exam NAD, awake alert Eye: PERRL, anicteric sclera ENT: normocephalic atraumatic, moist mucosa Neck: supple, no JVD Heart: RRR, no murmur Respiratory: no wheezes, no rales, rhonchi Gastrointestinal: soft, non-tender, non-distended, normal bowel sounds Extremities: no cyanosis, no clubbing Neurological: CN's grossly intact, no focal deficits Psychiatric: normal affect, A&O x 3 Hosp A/P (1) COPD exacerbation Code(s): J44.1 - CHRONIC OBSTRUCTIVE PULMONARY DISEASE W (ACUTE) EXACERBATION Status: Acute (2) HTN (hypertension) Code(s): I10 - ESSENTIAL (PRIMARY) HYPERTENSION Status: Chronic Qualifiers: Hypertension type: essential hypertension Qualified Code(s): I10 - Essential (primary) hypertension (3) Hypothyroidism Code(s): E03.9 - HYPOTHYROIDISM, UNSPECIFIED Status: Chronic Qualifiers: Hypothyroidism type: acquired Qualified Code(s): E03.9 - Hypothyroidism, unspecified (4) Chronic anemia Code(s): D64.9 - ANEMIA, UNSPECIFIED Status: Chronic - Plan change iv steroids to prednisone will be ready for dc in am continue nebs, oxygen prn and at night empiric augmentin hemostable continue norvasc, protonix, cozaar and synthroid as before.
[2019-05-19 04:35] VITALS: TEMP 97.8
[2019-05-19] MEDS: Levothyroxine Sodium 75 MCG TAB PO SCH (05:31)
[2019-05-19] MEDS: Mometasone/Formoterol 120 PUFF INHALER INH SCH (06:43)
[2019-05-19] MEDS ORDERED: predniSONE 20 MG TAB PO SCH (08:00)
[2019-05-19 08:17] VITALS: BP 124/67
[2019-05-19] MEDS: Losartan 25 MG TAB PO SCH (08:43)
[2019-05-19] MEDS: Multivit, Therapeutic 1 TAB PO SCH (08:43)
[2019-05-19] MEDS: Ferrous Sulfate 325 MG TAB PO SCH (08:44)
[2019-05-19] MEDS: Amoxicillin/Potassium Clav 875 MG TAB PO SCH (08:44)
[2019-05-19] MEDS: Enoxaparin Sodium 40 MG/0.4 ML SYRINGE SC SCH (08:46)
--- NOTE | 2019-05-19 09:14 | DIS ---
DATE OF ADMISSION: 05/17/2019 DATE OF DISCHARGE: 05/19/2019 PRIMARY CARE PHYSICIAN: Augusto Whitley MD DISPOSITION: Discharged home. FINAL DIAGNOSES: 1. Chronic obstructive pulmonary disease with exacerbation. 2. Chronic respiratory failure with hypoxemia. 3. Hypertension. 4. Anemia. 5. Hypothyroidism. DISCHARGE MEDICATIONS: New, 1. Augmentin 875 b.i.d. for 7 days. 2. Medrol Dosepak. Old, 1. Ventolin HFA 2 puffs q.6 hours p.r.n. 2. Advair Diskus 550 one inhalation twice a day. 3. Norvasc 10 mg a day. 4. Mobic 15 mg a day. 5. Flexeril 5 mg t.i.d. p.r.n. 6. Losartan 50 mg a day. 7. Levothyroxine 75 mcg a day. 8. DuoNeb 3 mL q.6 h. 9. Protonix 40 mg twice a day. ALLERGIES: NO KNOWN DRUG ALLERGIES. DIET: As tolerated. PENDING AT TIME OF DISCHARGE: Nothing. CODE STATUS: Full. HOSPITAL COURSE: The patient admitted to the [facility] through [facility] with shortness of breath, exacerbation of COPD. She was started on aggressive therapy with nebs, steroids. Initial laboratory, basic metabolic profile was essentially normal. CBC showed hemoglobin of 11.2 old, white count 4.7, and platelet count 351,000. Chest x-ray done at an outside facility demonstrated clear lung skelton with some hyperinflation, normal heart size. The patient was treated initially with IV steroids, antibiotics, nebs, etc. She was deescalated to prednisone yesterday. Today, her chest is clear. Good breath sounds. Vital signs stable. She is actually up and dressed and ready to go home. No consultations. No procedures. Followup in [address] Whitley. Prescriptions written. Job ID: [id number]
== END 2019-05-19 10:30 | disposition home or self-care (01) | DRG 191 ==
LOC: ERS 12:14 → T4-A 15:36
PROVIDERS: ADMIT Internal Medicine; ATTEND Internal Medicine
DX: J44.1 Chronic obstructive pulmonary disease with (acute) exacerbation (principal); J96.11 Chronic respiratory failure with hypoxia; I10 Essential (primary) hypertension; M19.90 Unspecified osteoarthritis, unspecified site; D50.9 Iron deficiency anemia, unspecified; E78.00 Pure hypercholesterolemia, unspecified; E03.9 Hypothyroidism, unspecified; E78.5 Hyperlipidemia, unspecified; Z99.81 Dependence on supplemental oxygen; Z87.891 Personal history of nicotine dependence; Z79.899 Other long term (current) drug therapy; Z79.51 Long term (current) use of inhaled steroids; Z79.1 Long term (current) use of non-steroidal anti-inflammatories (NSAID)
CPT/HCPCS: 36415; 80048; 85025; 87040; 94640; 96365; 96367; J0696; J1650; J2920; J3475; J7512; J7620